=== PATIENT | female | born 2000 | race Hispanic/Latino ===

== ENCOUNTER 2024-06-05 08:55 | Outpatient (RCR) | payer OTHER | END 2024-06-06 | LOC: PT 08:55 | PROVIDERS: ATTEND Physician Assistant | DX: S83.501A Sprain of unspecified cruciate ligament of right knee, initial encounter (principal) ==

== ENCOUNTER → 2024-07-06 | Outpatient (RCR) | payer OTHER | LOC: PT 06-10 07:59 | PROVIDERS: ATTEND Physician Assistant | DX: S83.511D Sprain of anterior cruciate ligament of right knee, subsequent encounter (principal); S83.221D Peripheral tear of medial meniscus, current injury, right knee, subsequent encounter; M25.561 Pain in right knee; M25.661 Stiffness of right knee, not elsewhere classified; M62.81 Muscle weakness (generalized); R26.2 Difficulty in walking, not elsewhere classified | CPT/HCPCS: 97110 ×12; G0283 ×5 ==

== ENCOUNTER 2024-07-22 09:00 | Outpatient (RCR) | payer OTHER | END 2024-08-06 | LOC: PT 09:00 | PROVIDERS: ATTEND Physician Assistant | DX: S83.511D Sprain of anterior cruciate ligament of right knee, subsequent encounter (principal); S83.221D Peripheral tear of medial meniscus, current injury, right knee, subsequent encounter; M25.561 Pain in right knee; M25.661 Stiffness of right knee, not elsewhere classified; M62.81 Muscle weakness (generalized); R26.2 Difficulty in walking, not elsewhere classified ==